=== PATIENT | female | born 1960 | race Caucasian/White ===

== ENCOUNTER 2016-08-28 22:01 | Emergency (ER) | payer OTHER ==
--- NOTE | 2016-08-28 22:13 | Emergency Department Record ---
History of Present Illness - General Stated complaint: INJURY ON LT FOOT TOES Time Seen by Provider: 08/28/16 22:07 Source: Patient Mode of Arrival: Ambulatory Limitations: No limitations - History of Present Illness Initial comments: 56 yo female presents after stubbing her left foot and toes yesterday. She has pain in the 2nd through 4th toes with some bruising. Intact toe nails. No redness or current bleeding. 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 MD Complaint: Extremity pain, Joint pain -: Days(s) (1) Location: Left History of Same: No -: Yes Arthralgia Quality: Aching Consistency: Constant Improves with: Immobilization Worsens with: Exertion, Weight bearing Associated Symptoms: Denies other symptoms - Related Data Home Medications Medication Instructions Recorded Confirmed Last Taken No Home Med [NO HOME MEDS] 08/28/16 08/28/16 Unknown Allergies Allergy/AdvReac Type Severity Reaction Status Date / Time doxycycline calcium Allergy SKIN Verified 12/20/14 23:06 [From Vibramycin] IRRITATION doxycycline hyclate Allergy SKIN Verified 12/20/14 23:06 [From Vibramycin] IRRITATION doxycycline monohydrate Allergy SKIN Verified 12/20/14 23:06 [From Vibramycin] IRRITATION iodine Allergy HIVES Verified 12/20/14 23:06 Sulfa (Sulfonamide Allergy ANAPHYLAXIS Verified 12/20/14 23:06 Antibiotics) Tetracyclines Allergy SKIN Verified 12/20/14 23:06 IRRITATION Review of Systems Constitutional: Denies: Chills, Fever, Malaise, Weakness Eyes: Denies: Eye discharge ENT: Denies: Congestion, Throat pain Respiratory: Denies: Cough Cardiovascular: Denies: Chest pain, Palpitations, Syncope Endocrine: Denies: Fatigue Gastrointestinal: Denies: Abdominal pain, Diarrhea, Vomiting Genitourinary: Denies: Dysuria, Urgency Musculoskeletal: Denies: Arthralgia, Back pain, Myalgia, Neck pain Skin: Reports: Bruising. Denies: Change in color Neurological: Denies: Headache Psychiatric: Denies: Anxiety Hematological/Lymphatic: Denies: Blood Clots, Easy bleeding, Easy bruising, Swollen glands Past Medical History - SOCIAL HISTORY Smoking Status: Never smoker - RESPIRATORY Hx Respiratory Disorders: No - CARDIOVASCULAR Hx Cardio Disorders: No - NEURO Hx Neuro Disorders: No - GI Hx GI Disorders: No - Hx Genitourinary Disorders: No - ENDOCRINE Hx Endocrine Disorders: No - MUSCULOSKELETAL Hx Musculoskeletal Disorders: No - PSYCH Hx Psych Problems: No - HEMATOLOGY/ONCOLOGY Hx Hematology/Oncology Disorders: No Family Medical History Family Hx Comment (NOT TO BE USED IN PLACE OF ITEMS BELOW): breast ca, htn, diabetes Physical Exam - General General Appearance: Alert, Oriented x3, Cooperative, No acute distress Limitations: No limitations - Head Head exam: Atraumatic, Normal inspection - Eye Eye exam: Normal appearance. negative: Conjunctival injection, Periorbital swelling - ENT ENT exam: Normal exam Ear exam: Normal external inspection Nasal Exam: Normal inspection Mouth exam: Normal external inspection - Neck Neck exam: Normal inspection - Cardiovascular Peripheral Pulses: 2+: Dorsalis Pedis (L) - Rectal Rectal exam: Deferred - exam: Deferred - Extremities Extremities exam: Full ROM, Joint swelling, Tenderness. negative: Normal inspection Image of Feet: 1 - mild swelling, no deformity, bruising noted on the 4th toe, intact nails. - Neurological Neurological exam: Alert, Oriented X3. negative: Motor sensory deficit - Psychiatric Psychiatric exam: Normal affect, Normal mood. negative: Agitated - Skin Skin exam: Dry, Intact, Normal color, Warm. negative: Cyanosis, Diaphoretic Course - Reevaluation(s) Reevaluation #1: XR ordered of the left foot 08/28/16 22:11 Reevaluation #2: The final read was reviewed No acute fracture of the foot or toes. 08/28/16 22:43 Disposition Disposition: Discharge Clinical Impression: Contusion of toe of left foot Qualifiers: Encounter type: initial encounter Toe: unspecified toe Qualified Code(s): S90.122A - Contusion of left lesser toe(s) without damage to nail, initial encounter Disposition: Home, Self-Care Condition: (1) Good Instructions: Foot Contusion (ED) Additional Instructions: Ice the sore areas if you have swelling Call your doctor for close follow up if the pain continues Avoid prolonged standing Time of Disposition: 22:43
== END 2016-08-28 22:52 | disposition home or self-care (01) ==
LOC: ER 22:01
DX: S90.122A Contusion of left lesser toe(s) without damage to nail, initial encounter (principal); W18.40XA Slipping, tripping and stumbling without falling, unspecified, initial encounter
CPT/HCPCS: 99283

== ENCOUNTER 2016-09-24 21:18 | Emergency (ER) | payer OTHER ==
[2016-09-24] MEDS ORDERED: 0.9 % SODIUM CHLORIDE 1,000 ML BAG IV ONE (22:02)
[2016-09-24] MEDS ORDERED: HYDROMORPHONE HCL 1 MG/ML CPJ IVP ONE (22:02)
[2016-09-24] MEDS ORDERED: ONDANSETRON HCL IV 4 MG/2 ML VIAL IV ONE (22:02)
--- NOTE | 2016-09-24 22:06 | Emergency Department Record ---
History of Present Illness - General Chief Complaint: Abdominal Pain Stated Complaint: ABD PAIN Time Seen by Provider: 09/24/16 21:52 Source: Patient Mode of Arrival: Ambulatory Limitations: No limitations - History of Present Illness Initial Comments: The patient is here due to a 3 day hx of diffuse sharp stabbing AP. It started on the L side and has moved over to R upper quad. She denies any nausea, vomiting, diarrhea or fever. The patient has a long hx of chronic AP but this is slightly worse. Eating and drinking do not affect the pain. The patient has had a Laparoscopy done in 1991 for Endometriosis but no other abdominal surgeries. MD Complaint: Abdominal pain Onset/Timin -: Days(s) Location: RUQ Radiation: L flank, R flank Quality: Dull, Sharp, Stabbing Consistency: Constant, Getting worse Improves With: Nothing Worsens With: Movement, Other Associated Symptoms: Denies other symptoms - Related Data Patient : No Home Medications Medication Instructions Recorded Confirmed Last Taken No Home Med [NO HOME MEDS] 08/28/16 09/24/16 Unknown Allergies Allergy/AdvReac Type Severity Reaction Status Date / Time doxycycline calcium Allergy SKIN Verified 12/20/14 23:06 [From Vibramycin] IRRITATION doxycycline hyclate Allergy SKIN Verified 12/20/14 23:06 [From Vibramycin] IRRITATION doxycycline monohydrate Allergy SKIN Verified 12/20/14 23:06 [From Vibramycin] IRRITATION iodine Allergy HIVES Verified 12/20/14 23:06 Sulfa (Sulfonamide Allergy ANAPHYLAXIS Verified 12/20/14 23:06 Antibiotics) Tetracyclines Allergy SKIN Verified 12/20/14 23:06 IRRITATION Travel Screening - Travel/Exposure Within Last 30 Days Have you traveled within the last 30 days?: No - Travel Symptoms Symptom Screening: None Review of Systems Constitutional: Denies: Chills, Fever Eyes: Denies: Eye discharge ENT: Denies: Congestion Respiratory: Denies: Cough, Dyspnea Past Medical History - SOCIAL HISTORY Smoking Status: Never smoker Alcohol Use: None - 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 - RESPIRATORY Hx Respiratory Disorders: No - CARDIOVASCULAR Hx Cardio Disorders: No - NEURO Hx Neuro Disorders: No - GI Hx GI Disorders: Yes Hx Abdominal Pain: Yes - Hx Genitourinary Disorders: No - ENDOCRINE Hx Endocrine Disorders: No - MUSCULOSKELETAL Hx Musculoskeletal Disorders: No - PSYCH Hx Psych Problems: No - HEMATOLOGY/ONCOLOGY Hx Hematology/Oncology Disorders: No Family Medical History Any Significant Family History?: Yes Family Hx Comment (NOT TO BE USED IN PLACE OF ITEMS BELOW): breast ca, htn, diabetes Physical Exam - General General Appearance: Alert, Oriented x3, Cooperative, No acute distress - Head Head exam: Atraumatic, Normocephalic, Normal inspection - Eye Eye exam: Normal appearance, PERRL - Neck Neck exam: Normal inspection, Full ROM. negative: Tenderness - Respiratory Respiratory exam: Normal lung sounds bilaterally. negative: Respiratory distress - Cardiovascular Cardiovascular Exam: Regular rate, Normal rhythm, Normal heart sounds - GI/Abdominal GI/Abdominal exam: Soft, Tenderness (There is diffuse tenderness in all 4 quads increased in the epigastric area.). negative: Distended, Rebound, Rigid - Extremities Extremities exam: Normal inspection, Full ROM, Normal capillary refill. negative: Tenderness Course Vital Signs 09/24/16 21:23 Temperature 98.7 F Pulse Rate [ 90 Pulse Ox Probe] Respiratory 20 Rate Blood Pressure 163/100 [Left Arm] Pulse Ox 98 - Reevaluation(s) Reevaluation #1: The patient is doing better after the pain medicines. She is resting comfortably and will be going to CT soon. 09/24/16 23:43 Reevaluation #2: The patient is doing well at this time. Her pain is much improved. I did discuss the lab results and CT results and did recommend recheck in the ED in 10 -12 hours. The patient will take Tylenol for pain and return to the ER for recheck. 09/25/16 01:09 Medical Decision Making - Data Complexity MDM Data: Labs Ordered and/or Reviewed, X-Ray Ordered and/or Reviewed - Lab Data Result diagrams: 09/24/16 22:19 09/24/16 22:19 - Radiology Data Radiology results: Report reviewed (Abd CT: Normal.) Disposition Disposition: Discharge Clinical Impression: Abdominal pain in female Disposition: Home, Self-Care Condition: (1) Good Instructions: Abdominal Pain (ED) Additional Instructions: Please take Tylenol or Motrin for pain and use an OTC laxative. Please return to the ER around noon today for recheck. Return sooner for any increased pain, fever, or vomiting. Forms: Patient Portal Access Time of Disposition: 01:11
[2016-09-24 22:13] LABS: URINE APPEARANCE CLEAR; URINE BILIRUBIN NEGATIVE (NEGATIVE); URINE BLOOD LARGE (NEGATIVE); URINE COLOR YELLOW; URINE GLUCOSE (UA) NEGATIVE (NEGATIVE); URINE KETONE NEGATIVE (NEGATIVE); URINE LEUKOCYTE ESTERASE NEGATIVE (NEGATIVE); URINE NITRITE NEGATIVE (NEGATIVE); URINE PROTEIN NEGATIVE (NEGATIVE); URINE UROBILINOGEN 0.2 E.U./dL (0.20 - 1.00)
[2016-09-24 22:25] LABS: URINE BACTERIA NONE SEEN; URINE EPITHELIAL CELLS 0 - 2 (FEW); URINE WBC 0 - 2 (0-2/hpf)
[2016-09-24 22:33] LABS: BASO % 0.3 % (0-6); GRAN % 63.6 % (47-80); HEMATOCRIT 44.2 % (35.0-47.0); HEMOGLOBIN 14.2 gm/dl (11.6-16.0); MEAN CELL VOLUME 92.7 fl (81-97); MEAN CORPUSCULAR HEMOGLOBIN 29.8 pg (27-33); MEAN CORPUSCULAR HGB CONC 32.1 g/dl (32-36); MEAN PLATELET VOLUME 10.2 fl (7.4-10.4); MONO % 7.1 % (0-9); PLATELET COUNT 342 K/uL (130-400); RED BLOOD COUNT 4.77 M/uL (3.80-5.40); RED CELL DISTRIBUTION WIDTH 12.4 % (11.5-14.5); WHITE BLOOD COUNT W/O DIFF 9.4 K/uL (4.2-12.2)
[2016-09-24 22:45] LABS: ALBUMIN 4.8 gm/dL (3.5-5.0); ALKALINE PHOSPHATASE 106 U/L (38-126); ALT/SGPT 38 U/L (9-52); AMYLASE 102 U/L (30-110); ANION GAP 10.1 (7-16); AST/SGOT 28 U/L (14-36); BILIRUBIN,TOTAL 0.52 mg/dL (0.2-1.3); BLOOD UREA NITROGEN 18 mg/dL (7-17); CARBON DIOXIDE 27.9 mmol/L (22-30); CREATININE 0.9 mg/dL (0.52-1.04); EST GLOMERULAR FILTRATION RATE > 60 ml/min; GLUCOSE,RANDOM 100 mg/dL (70-110); LIPASE 332 U/L (23-300); TOTAL PROTEIN 7.6 gm/dL (6.3-8.2)
[2016-09-25] MEDS ORDERED: MAGNESIUM HYDROXIDE/AL HYDROX 30 ML, LIDOCAINE VISC 2% 200 MG PO ONE ×2 (00:11)
[2016-09-25] MEDS ORDERED: KETOROLAC 30 MG/ML VIAL IVP ONE (00:11)
== END 2016-09-25 01:44 | disposition home or self-care (01) ==
LOC: ER 21:18
DX: R10.11 Right upper quadrant pain (principal); R51 Headache; R11.0 Nausea
CPT/HCPCS: 99284 ×2; 96374; 96375; 82150; 83690; 85025; 80076; 80048; 81001; 74176; J1885; J2405; J1170; J7030

== ENCOUNTER 2016-09-25 13:25 | Emergency (ER) | payer OTHER ==
--- NOTE | 2016-09-25 14:59 | Emergency Department Record ---
History of Present Illness - General Chief Complaint: Abdominal Pain Stated Complaint: RE-CHECK ABD PAIN Time Seen by Provider: 09/25/16 14:44 Source: Patient Mode of Arrival: Ambulatory - History of Present Illness Initial Comments: 56 yo female presents with upper abdominal pain. She was seen in the ED last night. She is doing better since last night. No fever or vomiting. She still has a gallbladder. MD Complaint: Abdominal pain Onset/Timin -: Days(s) Location: RUQ - Related Data Patient : No Home Medications Medication Instructions Recorded Confirmed Last Taken No Home Med [NO HOME MEDS] 08/28/16 09/25/16 Unknown Allergies Allergy/AdvReac Type Severity Reaction Status Date / Time doxycycline Allergy SKIN Verified 09/25/16 15:34 IRRITATION iodine Allergy HIVES Verified 09/25/16 15:34 Sulfa (Sulfonamide Allergy ANAPHYLAXIS Verified 09/25/16 15:34 Antibiotics) Tetracyclines Allergy SKIN Verified 09/25/16 15:34 IRRITATION Travel Screening - Travel/Exposure Within Last 30 Days Have you traveled within the last 30 days?: No - Travel/Exposure Within Last Year Have you traveled outside the [place] in the last year?: No - Additonal Travel Details Have you been exposed to anyone with a communicable illness?: No - Travel Symptoms Symptom Screening: None Review of Systems Constitutional: Denies: Chills, Fever, Malaise, Weakness Eyes: Denies: Eye discharge ENT: Denies: Congestion, Throat pain Respiratory: Denies: Cough Cardiovascular: Denies: Chest pain, Palpitations, Syncope Endocrine: Denies: Fatigue, Polydipsia, Polyuria Gastrointestinal: Reports: As per HPI, Abdominal pain, Nausea, Vomiting. 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 - RESPIRATORY Hx Respiratory Disorders: No - CARDIOVASCULAR Hx Cardio Disorders: No - NEURO Hx Neuro Disorders: No - GI Hx GI Disorders: Yes Hx Abdominal Pain: Yes - Hx Genitourinary Disorders: No - ENDOCRINE Hx Endocrine Disorders: No - MUSCULOSKELETAL Hx Musculoskeletal Disorders: No - PSYCH Hx Psych Problems: No - HEMATOLOGY/ONCOLOGY Hx Hematology/Oncology Disorders: No Family Medical History Any Significant Family History?: Yes Family Hx Comment (NOT TO BE USED IN PLACE OF ITEMS BELOW): breast ca, htn, diabetes Physical Exam - General General Appearance: Alert, Oriented x3, Cooperative, No acute distress Limitations: No limitations - Head Head exam: Normal inspection - Eye Eye exam: Normal appearance, PERRL. negative: Conjunctival injection, Periorbital swelling - ENT ENT exam: Normal exam, Mucous membranes moist Ear exam: Normal external inspection Nasal Exam: Normal inspection Mouth exam: Normal external inspection Teeth exam: Normal inspection Throat exam: Normal inspection - Neck Neck exam: Normal inspection, Full ROM. negative: Tenderness - Respiratory Respiratory exam: Normal lung sounds bilaterally. negative: Respiratory distress - Cardiovascular Cardiovascular Exam: Regular rate, Normal rhythm, Normal heart sounds - GI/Abdominal GI/Abdominal exam: Soft, Normal bowel sounds. negative: Distended, Guarding, Hernia, Rebound, Rigid, Tenderness - Rectal Rectal exam: Deferred - exam: Deferred - Extremities Extremities exam: Normal inspection, Full ROM, Normal capillary refill. negative: Tenderness - Back Back exam: Reports: Normal inspection, Full ROM. Denies: CVA tenderness (R), CVA tenderness (L), Muscle spasm, Paraspinal tenderness, Rash noted, Tenderness , Vertebral tenderness - Neurological Neurological exam: Alert, Normal gait, Oriented X3, Reflexes normal - Psychiatric Psychiatric exam: Normal affect, Normal mood - Skin Skin exam: Dry, Intact, Normal color, Warm Course Vital Signs 09/25/16 14:16 Temperature 98.6 F Pulse Rate 88 Respiratory 20 Rate Blood Pressure 147/84 Pulse Ox 98 - Reevaluation(s) Reevaluation #1: The labs were reviewed. Lipase has normalized. No acute changes of the CBC or CMP. CR is 1.1 09/25/16 15:22 Reevaluation #2: The prelim US was reviewed. 2 GB polyps noted. She is very comfortable. We discussed continued outpatient follow up with her GI doctor and a referral to the [facility] for a new PCP. 09/25/16 16:32 Medical Decision Making - Lab Data Result diagrams: 09/25/16 14:55 09/25/16 14:55 Disposition Disposition: Discharge Clinical Impression: Abdominal pain in female, Gall bladder polyp Disposition: Home, Self-Care Condition: (1) Good Instructions: Abdominal Pain (ED) Additional Instructions: Call your doctor for outpatient follow up Consider an outpatient HIDA scan if the symptoms continue Referrals: BARBY SCHULTE [] - SAURAV KIRKPATRICK M.D. [MEDICAL DOCTOR] - Forms: Patient Portal Access Time of Disposition: 16:34
[2016-09-25 15:00] LABS: BASO % 0.1 % (0-6); EOS % 1.6 % (0-6); GRAN % 66.3 % (47-80); HEMATOCRIT 42.8 % (35.0-47.0); HEMOGLOBIN 13.8 gm/dl (11.6-16.0); LYMPH % 25.4 % (16-45); MEAN CELL VOLUME 93.4 fl (81-97); MEAN CORPUSCULAR HEMOGLOBIN 30.1 pg (27-33); MEAN CORPUSCULAR HGB CONC 32.2 g/dl (32-36); MEAN PLATELET VOLUME 10.1 fl (7.4-10.4); MONO % 6.6 % (0-9); PLATELET COUNT 323 K/uL (130-400); RED BLOOD COUNT 4.58 M/uL (3.80-5.40); RED CELL DISTRIBUTION WIDTH 12.3 % (11.5-14.5); WHITE BLOOD COUNT W/O DIFF 6.8 K/uL (4.2-12.2)
[2016-09-25 15:11] LABS: ALB/GLOB RATIO 1.7 (1.1-1.8); ALBUMIN 4.9 gm/dL (3.5-5.0); ANION GAP 12.4 (7-16); BILIRUBIN,TOTAL 0.83 mg/dL (0.2-1.3); CARBON DIOXIDE 28.6 mmol/L (22-30); CREATININE 1.1 mg/dL (0.52-1.04); TOTAL PROTEIN 7.8 gm/dL (6.3-8.2)
== END 2016-09-25 16:54 | disposition home or self-care (01) ==
LOC: ER 13:25
DX: R10.11 Right upper quadrant pain (principal); K82.4 Cholesterolosis of gallbladder
CPT/HCPCS: 76700; 80053; 83690; 85025; 99283

== ENCOUNTER 2018-12-09 18:38 | Emergency (ER) | payer OTHER ==
--- NOTE | 2018-12-09 19:00 | Emergency Department Record ---
History of Present Illness - General Chief Complaint: Back Pain/Injury Stated Complaint: BACK PAIN Time Seen by Provider: 12/09/18 18:53 Source: Patient Mode of Arrival: Ambulatory Limitations: No limitations - History of Present Illness Initial Comments: 58 yo female presents with lumbar pain and right foot pain. The lumbar pain started after lifting heavy darin of hay. The pain is lower and across. She has a vague occasional warm feeling in the left leg. No weakness. No numbness or tingling. No change sin bowel or bladder function. She also was stepped on by a horse on the right foot. This occurred about a week ago. The pain is distal mid foot. MD Complaint: Back pain, Back injury, Other (Right foot injury) -: Days(s) Place: Home (Farm) Radiation: Left leg Severity: Moderate Quality: Aching, Burning Consistency: Constant Improves With: Immobilization Worsens With: Movement Context: Bending, Turning/twisting, While lifting Associated Symptoms: Denies other symptoms - Related Data Allergies Allergy/AdvReac Type Severity Reaction Status Date / Time doxycycline Allergy SKIN Verified 09/25/16 15:34 IRRITATION iodine Allergy HIVES Verified 09/25/16 15:34 Sulfa (Sulfonamide Allergy ANAPHYLAXIS Verified 09/25/16 15:34 Antibiotics) Tetracyclines Allergy SKIN Verified 09/25/16 15:34 IRRITATION Review of Systems Constitutional: Denies: Chills, Fever, Malaise, Weakness Eyes: Denies: Eye discharge ENT: Denies: Congestion Respiratory: Denies: Cough, Dyspnea Cardiovascular: Denies: Chest pain, Palpitations Endocrine: Denies: Fatigue Gastrointestinal: Denies: Abdominal pain, Diarrhea, Nausea, Vomiting Genitourinary: Denies: Dysuria, Urgency Musculoskeletal: Reports: Arthralgia, Back pain, Myalgia Skin: Denies: Bruising, Change in color, Rash Neurological: Denies: Headache, Numbness, Tingling, Weakness Psychiatric: Denies: Anxiety Hematological/Lymphatic: Denies: Easy bleeding, Easy bruising Past Medical History - SOCIAL HISTORY Smoking Status: Never smoker Drug Use: None - 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 - RESPIRATORY Hx Respiratory Disorders: No - CARDIOVASCULAR Hx Cardio Disorders: No - NEURO Hx Neuro Disorders: No - GI Hx GI Disorders: Yes Hx Abdominal Pain: Yes - Hx Genitourinary Disorders: No - ENDOCRINE Hx Endocrine Disorders: No - MUSCULOSKELETAL Hx Musculoskeletal Disorders: No - PSYCH Hx Psych Problems: No - HEMATOLOGY/ONCOLOGY Hx Hematology/Oncology Disorders: No Family Medical History Family Hx Comment (NOT TO BE USED IN PLACE OF ITEMS BELOW): breast ca, htn, diabetes Physical Exam - General General Appearance: Alert, Oriented x3, Cooperative, No acute distress Limitations: No limitations - Head Head exam: Atraumatic, Normocephalic, Normal inspection Head exam detail: negative: Abrasion, Contusion, General tenderness, Hematoma - Eye Eye exam: Normal appearance, PERRL. negative: Conjunctival injection, Scleral icterus - ENT ENT exam: Normal exam Ear exam: Normal external inspection Nasal Exam: Normal inspection Mouth exam: Normal external inspection - Neck Neck exam: Normal inspection, Full ROM - Cardiovascular Cardiovascular Exam: Regular rate, Normal rhythm Peripheral Pulses: 2+: Dorsalis Pedis (R) - Rectal Rectal exam: Deferred - exam: Deferred - Extremities Extremities exam: Full ROM, Normal capillary refill, Tenderness. negative: Normal inspection (right foot bruising), Joint swelling, Pedal edema Image of Feet: 1 - mild tenderness and bruising - Back Back exam: Reports: Normal inspection, Muscle spasm, Paraspinal tenderness, T enderness, Vertebral tenderness. Denies: Full ROM Image of Body Front/Back: 1 - tender, normal inspection, negative SLR, foot flexion and extention intact, sensation intact - Neurological Neurological exam: Alert, Normal gait, Oriented X3, Reflexes normal. negative: Altered, Motor sensory deficit - Psychiatric Psychiatric exam: Normal affect, Normal mood - Skin Skin exam: Other (bruising) Course - Reevaluation(s) Reevaluation #1: 12/09/18 19:37 The XR of the foot was reviewed. No definite fracture or bony abnormality. The Lumbar XR was reviewed. Mild multilevel degenerative changes noted. Mild disc space narrowing at L5-S1 The patient does not request any pain medication. We discussed the finding, supportive treatment at home and follow up plan if the pain is not better. 12/09/18 19:54 Disposition Disposition: Discharge Clinical Impression: Lumbar spine strain Qualifiers: Encounter type: initial encounter Qualified Code(s): S39.012A - Strain of muscle, fascia and tendon of lower back, initial encounter Disposition: Home, Self-Care Condition: (1) Good Instructions: Low Back Strain (ED) Additional Instructions: Call your doctor for a recheck if not improving in the next week If your symptoms do not improve see your doctor for additional evaluation or testing Motrin as directed for pain Forms: Patient Portal Access Time of Disposition: 19:41 Quality - Quality Measures Quality Measures: N/A - Blood Pressure Screening Does Patient Have Any of the Following: No Blood Pressure Classification: Pre-Hypertensive BP Reading Systolic Measurement: 138 Diastolic Measurement: 88 Screening for High Blood Pressure: < Pre-Hypertensive BP, F/U Documented > [[id number]] Pre-Hypertensive Follow-up Interventions: Referral to alternative/primary care provider.
--- NOTE | 2018-12-11 06:07 | RADIOLOGY REPORT ---
EXAM: LUMBAR SPINE W/OBLIQUES HISTORY: LOW BACK PAIN, ACUTE ONSET. TECHNIQUE: Lumbar spine with obliques, five views. COMPARISON: CT abdomen and pelvis, 09/24/16. FINDINGS: Five lumbar vertebral bodies. No visible spondylolysis. Evaluation on lateral view is suboptimal due to obliquity. Alignment is normal. Vertebral body heights are grossly maintained. Mild disc space narrowing at L5-S1. No significant degenerative endplate changes. IMPRESSION: MILD DISC SPACE NARROWING AT THE LUMBOSACRAL JUNCTION. OTHERWISE, NEGATIVE EXAM. JOB NUMBER: [id number] [facility]
--- NOTE | 2018-12-11 06:09 | RADIOLOGY REPORT ---
EXAM: FOOT, RIGHT 3 VIEWS HISTORY: STEPPED ON BY A HORSE. TECHNIQUE: Right foot, three views. COMPARISON: None. FINDINGS: No bone or joint abnormalities identified. IMPRESSION: NO EVIDENCE FOR FRACTURE OR DISLOCATION. JOB NUMBER: [id number] [facility]
== END 2018-12-09 20:02 | disposition home or self-care (01) ==
LOC: ER 18:38
DX: S39.012A Strain of muscle, fascia and tendon of lower back, initial encounter (principal); X50.0XXA Overexertion from strenuous movement or load, initial encounter; S90.31XA Contusion of right foot, initial encounter; Y93.H9 Activity, other involving exterior property and land maintenance, building and construction; Y92.71 Barn as the place of occurrence of the external cause; Y99.8 Other external cause status
CPT/HCPCS: 72110; 99283